=== PATIENT | female | born 1965 | race Caucasian/White ===

== ENCOUNTER 2021-06-20 02:53 | Inpatient (IN) ==
[2021-06-20] MEDS ORDERED: Albuterol 2.5 MG/3 ML NEBULIZER IH ONE (03:04)
[2021-06-20] MEDS ORDERED: Ipratropium/Albuterol Neb 3 ML IH ONE (03:04)
[2021-06-20] MEDS ORDERED: methylPREDNISolone 125 MG/2 ML VIAL IVP ONE (03:04)
[2021-06-20] MEDS ORDERED: Azithromycin 500 MG in 0.9 % Sodium Chloride 250 ML IVPB ONE (03:04)
[2021-06-20 03:23] LABS: Basophils # 0.1 K/mcL (0.0-0.2); Basophils % 0.6 %; Eosinophils # 0.3 K/mcL (0.0-0.6); Eosinophils % 2.8 %; Hematocrit 52.8 % (35.3-44.9); Hemoglobin 17.2 g/dL (11.5-15.4); Immature Granulocytes % 0.2 % (0-4); Lymphocytes # 2.4 K/mcL (0.6-4.6); Lymphocytes % 25.9 %; Mean Corpuscular HGB Conc 32.6 g/dL (31.6-35.5); Mean Corpuscular Hemoglobin 28.7 pg (28.0-33.3); Monocytes # 0.4 K/mcL (0.0-1.3); Monocytes % 4.6 %; Neutrophils # 6.2 K/mcL (1.6-8.9); Platelet Count 244 K/mcL (140-400); Red Cell Distribution Width 13.5 % (11.5-14.5); Segmented Neutrophils % 65.9 %; White Blood Count 9.4 K/mcL (4.3-11.1)
[2021-06-20 03:31] LABS: Prothrombin Time 11.3 Seconds (9.4-12.1)
[2021-06-20 03:34] LABS: VBG HCO3 25 mEq/L (21-27); VBG PCO2 68 mmHg (41-51); VBG PH 7.18 pH Units (7.32-7.42); VBG PO2 98 mmHg (25-50)
[2021-06-20 03:34] LABS: Activated Partial Thrombo Time 35.6 Seconds (26.0-36.0)
[2021-06-20 04:02] LABS: BUN/Creatinine Ratio 31 (6-26); Blood Urea Nitrogen 22 mg/dL (6-20); Calcium 9.7 mg/dL (8.6-10.3); Carbon Dioxide 22 mEq/L (23-29); Chloride 104 mEq/L (98-107); Glucose 148 mg/dL (70-105); Osmolality,Calculated 292 (280-300); Potassium 4.6 mEq/L (3.5-5.1); Sodium 138 mEq/L (136-145); eGFR For African Americans > 60 (> 60); eGFR For Non-African Americans > 60 (> 60)
[2021-06-20 04:03] LABS: Troponin I < 0.03 ng/mL (< 0.04)
[2021-06-20 05:35] LABS: VBG HCO3 25 mEq/L (21-27); VBG PCO2 66 mmHg (41-51); VBG PH 7.19 pH Units (7.32-7.42); VBG PO2 44 mmHg (25-50)
[2021-06-20 05:39] LABS: Influenza A PCR Negative (Negative); Influenza B PCR Negative (Negative); Resp. Syncytial Virus PCR Negative (Negative)
[2021-06-20 05:40] LABS: SARS-CoV-2 by PCR (In House) Negative (Negative)
[2021-06-20] MEDS ORDERED: Naloxone 0.4 MG/ML INJ IVP PRN (06:41)
[2021-06-20] MEDS: Azithromycin 250 MG TABLET PO SCH (07:17)
[2021-06-20] MEDS ORDERED: 0.9 % Sodium Chloride 1,000 ML IVC ONE (07:36)
[2021-06-20] MEDS ORDERED: *HR* Metoprolol 5 MG/5 ML VIAL IVP ONE (07:37)
[2021-06-20] MEDS: predniSONE 20 MG TABLET PO SCH (07:54)
[2021-06-20] MEDS: Dexmedetomidine HCl 400 MCG/100 ML MLS IVC SCH (07:54)
[2021-06-20] MEDS: Ipratropium Neb 0.5 MG NEBULIZER IH SCH ×3 (08:37→19:38)
[2021-06-20] MEDS: Levalbuterol Neb 0.63 MG/3 ML IH SCH ×3 (08:37→19:38)
[2021-06-20] MEDS: *HR* Heparin 5,000 UNIT/ML VIAL SQ SCH ×2 (16:06→20:48)
[2021-06-20] MEDS ORDERED: 0.9 % Sodium Chloride 500 ML IV ONE (22:53)
[2021-06-20] MEDS ORDERED: 0.9 % Sodium Chloride 1,000 ML ONE (23:05)
[2021-06-21 01:01] LABS: VBG HCO3 24 mEq/L (21-27); VBG PCO2 56 mmHg (41-51); VBG PH 7.25 pH Units (7.32-7.42); VBG PO2 47 mmHg (25-50)
[2021-06-21 01:02] LABS: Basophils % 0.1 %; Hematocrit 42.9 % (35.3-44.9); Immature Granulocytes % 0.4 % (0-4); Lymphocytes # 1.2 K/mcL (0.6-4.6); Lymphocytes % 15.9 %; Mean Corpuscular HGB Conc 31.9 g/dL (31.6-35.5); Mean Corpuscular Hemoglobin 28.4 pg (28.0-33.3); Mean Corpuscular Volume 88.8 fL (83.0-100.0); Mean Platelet Volume 10.3 fL (9.4-12.4); Monocytes # 0.5 K/mcL (0.0-1.3); Monocytes % 6.6 %; Neutrophils # 5.8 K/mcL (1.6-8.9); Platelet Count 167 K/mcL (140-400); Red Blood Count 4.83 M/mcL (3.82-4.97); Red Cell Distribution Width 13.6 % (11.5-14.5); White Blood Count 7.6 K/mcL (4.3-11.1)
[2021-06-21 01:06] LABS: Hemoglobin 13.7 g/dL (11.5-15.4)
[2021-06-21 01:29] LABS: BUN/Creatinine Ratio 51 (6-26); Blood Urea Nitrogen 32 mg/dL (6-20); Calcium 8.9 mg/dL (8.6-10.3); Carbon Dioxide 23 mEq/L (23-29); Chloride 107 mEq/L (98-107); Glucose 103 mg/dL (70-105); Osmolality,Calculated 295 (280-300); Potassium 4.8 mEq/L (3.5-5.1); Sodium 139 mEq/L (136-145); eGFR For African Americans > 60 (> 60); eGFR For Non-African Americans > 60 (> 60)
[2021-06-21] MEDS ORDERED: Acetaminophen 325 MG TABLET PO PRN (03:52)
[2021-06-21] MEDS: Ipratropium Neb 0.5 MG NEBULIZER IH SCH ×4 (04:38→19:43)
[2021-06-21] MEDS: Levalbuterol Neb 0.63 MG/3 ML IH SCH ×4 (04:38→19:43)
[2021-06-21] MEDS: Dexmedetomidine HCl 400 MCG/100 ML MLS IVC SCH (05:00)
[2021-06-21] MEDS: Azithromycin 250 MG TABLET PO SCH (06:16)
[2021-06-21] MEDS: *HR* Heparin 5,000 UNIT/ML VIAL SQ SCH ×2 (06:16→14:19)
[2021-06-21 08:53] LABS: VBG HCO3 25 mEq/L (21-27); VBG PCO2 49 mmHg (41-51); VBG PH 7.31 pH Units (7.32-7.42); VBG PO2 130 mmHg (25-50)
[2021-06-21] MEDS: predniSONE 20 MG TABLET PO SCH (08:56)
[2021-06-22] MEDS: *HR* Heparin 5,000 UNIT/ML VIAL SQ SCH ×4 (00:31→21:31)
[2021-06-22] MEDS: Ipratropium Neb 0.5 MG NEBULIZER IH SCH ×4 (03:48→20:13)
[2021-06-22] MEDS: Levalbuterol Neb 0.63 MG/3 ML IH SCH ×4 (03:48→20:13)
[2021-06-22 04:25] LABS: Basophils % 0.1 %; Hematocrit 43.5 % (35.3-44.9); Hemoglobin 14.2 g/dL (11.5-15.4); Immature Granulocytes % 0.3 % (0-4); Lymphocytes # 1.7 K/mcL (0.6-4.6); Mean Corpuscular HGB Conc 32.6 g/dL (31.6-35.5); Mean Corpuscular Hemoglobin 28.6 pg (28.0-33.3); Mean Corpuscular Volume 87.5 fL (83.0-100.0); Mean Platelet Volume 9.8 fL (9.4-12.4); Monocytes # 0.6 K/mcL (0.0-1.3); Monocytes % 5.7 %; Neutrophils # 8.4 K/mcL (1.6-8.9); Platelet Count 173 K/mcL (140-400); Red Blood Count 4.97 M/mcL (3.82-4.97); Red Cell Distribution Width 14.1 % (11.5-14.5); Segmented Neutrophils % 77.9 %; White Blood Count 10.8 K/mcL (4.3-11.1)
[2021-06-22 04:29] LABS: VBG HCO3 27 mEq/L (21-27); VBG PCO2 50 mmHg (41-51); VBG PH 7.34 pH Units (7.32-7.42); VBG PO2 45 mmHg (25-50)
[2021-06-22 04:53] LABS: BUN/Creatinine Ratio 47 (6-26); Blood Urea Nitrogen 30 mg/dL (6-20); Calcium 9.4 mg/dL (8.6-10.3); Carbon Dioxide 26 mEq/L (23-29); Chloride 101 mEq/L (98-107); Glucose 72 mg/dL (70-105); Osmolality,Calculated 289 (280-300); Potassium 4.6 mEq/L (3.5-5.1); Sodium 137 mEq/L (136-145); eGFR For African Americans > 60 (> 60); eGFR For Non-African Americans > 60 (> 60)
[2021-06-22] MEDS: Azithromycin 250 MG TABLET PO SCH (06:43)
[2021-06-22] MEDS: predniSONE 20 MG TABLET PO SCH (07:48)
[2021-06-23] MEDS: Levalbuterol Neb 0.63 MG/3 ML IH SCH ×3 (03:25→15:53)
[2021-06-23] MEDS: Ipratropium Neb 0.5 MG NEBULIZER IH SCH ×3 (03:25→15:53)
[2021-06-23] MEDS: Azithromycin 250 MG TABLET PO SCH (05:52)
[2021-06-23] MEDS: *HR* Heparin 5,000 UNIT/ML VIAL SQ SCH ×2 (05:53→17:07)
[2021-06-23 06:36] LABS: Basophils % 0.1 %; Eosinophils % 0.3 %; Hematocrit 44.8 % (35.3-44.9); Immature Granulocytes % 0.2 % (0-4); Lymphocytes # 2.3 K/mcL (0.6-4.6); Lymphocytes % 26.2 %; Mean Corpuscular HGB Conc 33.5 g/dL (31.6-35.5); Mean Corpuscular Hemoglobin 28.8 pg (28.0-33.3); Mean Corpuscular Volume 86.2 fL (83.0-100.0); Mean Platelet Volume 10.2 fL (9.4-12.4); Monocytes # 0.7 K/mcL (0.0-1.3); Monocytes % 8.1 %; Neutrophils # 5.8 K/mcL (1.6-8.9); Platelet Count 184 K/mcL (140-400); Red Cell Distribution Width 13.7 % (11.5-14.5); Segmented Neutrophils % 65.1 %; White Blood Count 8.9 K/mcL (4.3-11.1)
[2021-06-23 06:49] LABS: BUN/Creatinine Ratio 44 (6-26); Blood Urea Nitrogen 28 mg/dL (6-20); Calcium 9.8 mg/dL (8.6-10.3); Carbon Dioxide 29 mEq/L (23-29); Chloride 102 mEq/L (98-107); Glucose 76 mg/dL (70-105); Osmolality,Calculated 294 (280-300); Sodium 140 mEq/L (136-145); eGFR For African Americans > 60 (> 60); eGFR For Non-African Americans > 60 (> 60)
[2021-06-23] MEDS: predniSONE 20 MG TABLET PO SCH (07:39)
[2021-06-23] MEDS ORDERED: Metoprolol XL (24 HR) Succ 25 MG TAB.ER.24H PO SCH (09:30)
[2021-06-23 10:12] LABS: ABG Base Excess 3 mEq/L (-2 to 3); ABG HCO3 27 mEq/L (21-27); ABG Oxygen Saturation 89 % (95-98); ABG PCO2 39 mmHg (35-45); ABG PH 7.44 pH Units (7.32-7.45); ABG PO2 54 mmHg (85-104); ABG TCO2 28 mEq/L (20-26); Blood Gas Modality OXYMS
[2021-06-23 11:11] VITALS: BP 146/74; PULSE 95; TEMP 98.1
[2021-06-23 11:16] LABS: Thyroid Stimulating Hormone 0.294 mcIU/mL (0.340-5.600)
[2021-06-23 16:14] VITALS: O2SAT 92
== END 2021-06-23 17:09 | disposition home or self-care (01) | DRG 189 ==
LOC: EMEROOARM 02:53 → 2NNU 02:53 → SUATTDRO 05:43 → 2NNU 06:15 → 2NENU 06-22 13:33
PROVIDERS: ADMIT Family Medicine; ATTEND Internal Medicine